=== PATIENT | male | born 1980 | race Caucasian/White ===

== ENCOUNTER 2017-07-19 23:08 | Inpatient (IN) ==
[2017-07-19] MEDS ORDERED: *HR* Dextrose 50 % in Water (Syg) 50 ML SYRINGE IVP PRN (23:34)
[2017-07-19] MEDS ORDERED: Insulin Human Regular 100 UNIT in 0.9 % Sodium Chloride 100 ML IVC SCH (23:45)
[2017-07-20 00:01] LABS: Basophils # 0.1 K/mcL (0.0-0.2); Basophils % 0.4 %; Eosinophils # 0.2 K/mcL (0.0-0.6); Eosinophils % 1.5 %; Hematocrit 44.8 % (37.5-50.1); Hemoglobin 15.3 g/dL (12.9-16.9); Immature Granulocytes % 0.6 % (0-4); Immature Platelets 2.7 % (1.1-6.1); Lymphocytes # 3.3 K/mcL (0.6-4.6); Lymphocytes % 22.9 %; Mean Corpuscular HGB Conc 34.2 g/dL (31.6-35.5); Mean Corpuscular Hemoglobin 25.8 pg (28.0-33.3); Mean Corpuscular Volume 75.7 fL (83.0-100.0); Mean Platelet Volume 9.8 fL (9.4-12.4); Monocytes # 0.9 K/mcL (0.0-1.3); Monocytes % 6.2 %; Neutrophils # 9.8 K/mcL (1.6-8.9); Platelet Count 336 K/mcL (140-400); Red Blood Count 5.92 M/mcL (4.19-5.50); Red Cell Distribution Width 15.8 % (11.5-14.5); Segmented Neutrophils % 68.4 %
[2017-07-20 00:10] LABS: VBG HCO3 21 mEq/L (21-27); VBG PCO2 40 mmHg (41-51); VBG PH 7.32 pH Units (7.32-7.42); VBG PO2 39 mmHg (25-50)
[2017-07-20 00:13] LABS: Beta-Hydroxybutyric Acid > 2.00 mmol/L (0.02-0.27)
[2017-07-20 00:24] LABS: Alanine Aminotransferase 30 Units/L (7-52); Albumin 4.6 g/dL (3.5-5.7); Albumin/Globulin Ratio 1.2 (1.1-2.2); Alkaline Phosphatase 117 Units/L (34-104); Aspartate Amino Transferase 18 Units/L (13-39); BUN/Creatinine Ratio 16 (6-26); Bilirubin,Total 0.4 mg/dL (0.3-1.0); Blood Urea Nitrogen 18 mg/dL (6-20); Calcium 10.2 mg/dL (8.6-10.3); Carbon Dioxide 21 mEq/L (23-29); Chloride 90 mEq/L (98-107); Globulin 3.8 g/dL (2.4-3.5); Glucose 672 mg/dL (70-105); Magnesium 2.2 mg/dL (1.6-2.6); Osmolality,Calculated 294 (280-300); Phosphorous 3.1 mg/dL (2.7-4.5); Potassium 4.6 mEq/L (3.5-5.1); Sodium 125 mEq/L (136-145); Total Protein 8.4 g/dL (6.4-8.9); eGFR For African Americans > 60 (> 60); eGFR For Non-African Americans > 60 (> 60)
[2017-07-20 00:38] LABS: Hemoglobin A1C 13.9 %
[2017-07-20 00:41] LABS: Amphetamine Screen,Urine Negative ng/mL (Cutoff=1000); Barbiturate Screen,Urine Negative ng/mL (Cutoff=200); Benzodiazepines Screen,Urine Negative ng/mL (Cutoff=200); Cannabinoid Screen,Urine Negative ng/mL (Cutoff = 50); Cocaine Screen,Urine Negative ng/mL (Cutoff= 300); Opiate Screen,Urine Negative ng/mL (Cutoff=300); Phencyclidine Screen,Urine Negative ng/mL (Cutoff=25)
[2017-07-20 00:44] LABS: Salicylate < 5.0 mg/dL (15.0-30.0)
[2017-07-20 00:45] LABS: Acetaminophen < 1.0 mcg/mL (10-30); Ethanol < 10 mg/dL (0-10)
[2017-07-20] MEDS: 0.9 % Sodium Chloride 1,000 ML IVC SCH ×2 (01:23→02:48)
[2017-07-20 01:24] LABS: Bilirubin,Urine Negative (Negative); Blood,Urine Negative (Negative); Clarity,Urine Clear (Clear); Color,Urine Yellow (Yellow); Glucose,Urine (UA) >=1000 mg/dL (Normal); Ketones,Urine 40 mg/dL (Negative); Leukocyte Esterase,Urine Negative (Negative); Nitrite,Urine Negative (Negative); Protein,Urine Negative (Neg-Trace); Specific Gravity,Urine > 1.030 (1.010-1.025); Urobilinogen,Urine Normal (Normal)
--- NOTE | 2017-07-20 01:35 | Emergency Department Note ---
Disposition Clinical Impression: Elevated glucose, Elevated blood ketone body level, Suicidal ideation Disposition: Admitted As Inpatient Condition: Fair Referrals: NONE,PCP [Primary Care Provider] - Forms: ED Satisfaction Letter General Adult HPI - General Chief complaint: ED Psychiatric Symptoms Stated complaint: suicidal, wants to quit using drugs Time Seen by Provider: 07/19/17 23:31 Source: patient, EMS Limitations: no limitations Nursing Notes Reviewed: Yes Vital Signs Reviewed: Yes - History of Present Illness HPI Narrative: Patient presents today with concern for suicidal ideation. Patient recently lost his brother secondary to overdose. He should is a heroine user. Patient uses heroin. Patient had thoughts of injecting enough heroin to commit suicide. [facility] The patient presents here with complaints of nausea vomiting and abdominal cramping. Patient is a diabetic with poor control. Patient will be evaluated for hyperglycemia with initial zrpyo-ic-rhbt glucose reading greater than 500. Patient also undergo psychiatric clearance labs. Pain Scale: 4 - Related Data Allergies Allergy/AdvReac Type Severity Reaction Status Date / Time tramadol AdvReac Seizure Verified 07/19/17 23:20 Review of Systems: CONSTITUTIONAL: No weight loss, fever, chills, weakness or fatigue. HEENT: Eyes: No visual changes. Ears, Nose, Throat: No hearing loss, difficulty talking or unable to swallow. SKIN: No rash or itching. CARDIOVASCULAR: No chest pain, chest pressure or chest discomfort. No palpitations or edema. RESPIRATORY: No shortness of breath, cough or sputum. GASTROINTESTINAL: Nausea vomiting and abdominal cramping GENITOURINARY: No burning on urination or hematuria. NEUROLOGICAL: No headache, dizziness, syncope, paralysis, ataxia, numbness or tingling in the extremities. No change in bowel or bladder control. MUSCULOSKELETAL: No muscle pain, back pain, joint pain or stiffness. Past Medical History - Past Medical History Medical history: Reports: diabetes, hepatitis Psychiatric history: Reports: anxiety, depression, PTSD - Social History Smoking Status: Never smoker Smokeless Tobacco Status: Yes Alcohol use: Reports: none Drug use: Reports: opiates Physical Exam General: Well appearing, nontoxic, no acute distress Head: Normocephalic Atraumatic Eyes: PERRL, EOMI ENT: Airway patent, no stridor Neck: supple, no meningismus Chest: Lungs clear to auscultation bilateral Cardiac: Regular rate and rhythm, no murmurs, rubs or gallops Abdomen: soft, nontender, nondistended; no guarding, rebound, or tenderness to percussion Musculoskeletal: Calves symmetric, nontender, no palpable cord Skin: No rash, normal skin tone Neuro: Alert and Oriented to person, place, and time; No focal deficit, CN 2-12 symmetric and intact - General Limitations: no limitations General appearance: alert, in no apparent distress Course - Reevaluation(s) Reevaluation #1: Patient with elevated glucose and positive serum ketones. Hyponatremic. Insulin drip started. Patient will be admitted to the hospitalist service. - Consultations Consultation #1: Discussed with hospitalist, Dr. Arriaga. Patient accepted for admission. Vital Signs Temperature 98 F 07/19/17 23:13 Pulse Rate 90 07/19/17 23:13 Respiratory Rate 16 07/19/17 23:13 Blood Pressure 144/88 07/19/17 23:13 O2 Sat by Pulse Oximetry 95 07/19/17 23:13 Temperature 98 F 07/19/17 23:13 Pulse Rate 95 07/20/17 01:49 Respiratory Rate 18 07/20/17 01:49 Blood Pressure 145/88 07/20/17 01:49 O2 Sat by Pulse Oximetry 95 07/20/17 01:49 Oxygen Delivery Oxygen Delivery Room Air Medical Decision Making - Lab Data Result diagrams: 07/19/17 23:54 07/19/17 23:54 Lab Results 07/19/17 07/19/17 07/19/17 Range/Units 23:15 23:15 23:54 WBC 14.3 H (4.3-11.1) K/mcL RBC 5.92 H (4.19-5.50) M/mcL Hgb 15.3 (12.9-16.9) g/dL Hct 44.8 (37.5-50.1) % MCV 75.7 L (83.0-100.0) fL MCH 25.8 L (28.0-33.3) pg MCHC 34.2 (31.6-35.5) g/dL RDW 15.8 H (11.5-14.5) % Plt Count 336 (140-400) K/mcL MPV 9.8 (9.4-12.4) fL Immature Gran % 0.6 (0-4) % Seg Neutrophils % 68.4 % Lymphocytes % 22.9 % Monocytes % 6.2 % Eosinophils % 1.5 % Basophils % 0.4 % Neutrophils # 9.8 H (1.6-8.9) K/mcL Lymphocytes # 3.3 (0.6-4.6) K/mcL Monocytes # 0.9 (0.0-1.3) K/mcL Eosinophils # 0.2 (0.0-0.6) K/mcL Basophils # 0.1 (0.0-0.2) K/mcL Immature Plt Fraction 2.7 (1.1-6.1) % VBG pH (7.32-7.42) pH Units VBG pCO2 (41-51) mmHg VBG pO2 (25-50) mmHg VBG HCO3 (21-27) mEq/L Sodium (136-145) mEq/L Potassium (3.5-5.1) mEq/L Chloride (98-107) mEq/L Carbon Dioxide (23-29) mEq/L BUN (6-20) mg/dL Creatinine (0.70-1.30) mg/dL Est GFR ( Amer) (> 60) Est GFR (Non-Af Amer) (> 60) BUN/Creatinine Ratio (6-26) Glucose (70-105) mg/dL Est Mean Plasma Glucose mg/dl Hemoglobin A1c ( - 5.6) % Calculated Osmolality (280-300) Lactic Acid (0.5-2.2) mmol/L Calcium (8.6-10.3) mg/dL Phosphorus (2.7-4.5) mg/dL Magnesium (1.6-2.6) mg/dL Total Bilirubin (0.3-1.0) mg/dL AST (13-39) Units/L ALT (7-52) Units/L Alkaline Phosphatase (34-104) Units/L Troponin I (< 0.04) ng/mL Serum Total Protein (6.4-8.9) g/dL Albumin (3.5-5.7) g/dL Globulin (2.4-3.5) g/dL Albumin/Globulin Ratio (1.1-2.2) Beta-Hydroxybutyric Acd (0.02-0.27) mmol/L Urine Color Yellow (Yellow) Urine Clarity Clear (Clear) Urine pH 6.0 (5.0-8.0) pH Units Ur Specific [place] > 1.030 H (1.010-1.025) Urine Protein Negative (Neg-Trace) mg/dL Urine Glucose (UA) >=1000 H (Normal) mg/dL Urine Ketones 40 H (Negative) mg/dL Urine Blood Negative (Negative) Urine Nitrite Negative (Negative) Urine Bilirubin Negative (Negative) Urine Urobilinogen Normal (Normal) mg/dL Ur Leukocyte Esterase Negative (Negative) Ur Culture Indicated? NO (NO) Salicylates (15.0-30.0) mg/dL Urine Opiates Screen Negative (Wawsah=895) ng/mL Acetaminophen (10-30) mcg/mL Ur Barbiturates Screen Negative (Kiqzlo=675) ng/mL Ur Phencyclidine Scrn Negative (Cutoff=25) ng/mL Ur Amphetamines Screen Negative (Cyklkj=5742) ng/mL U Benzodiazepines Scrn Negative (Jabkuc=842) ng/mL Urine Cocaine Screen Negative (Cutoff= 300) ng/mL U Marijuana (THC) Screen Negative (Cutoff = 50) ng/mL Ethyl Alcohol (0-10) mg/dL 07/19/17 07/19/17 07/19/17 Range/Units 23:54 23:54 23:54 WBC (4.3-11.1) K/mcL RBC (4.19-5.50) M/mcL Hgb (12.9-16.9) g/dL Hct (37.5-50.1) % MCV (83.0-100.0) fL MCH (28.0-33.3) pg MCHC (31.6-35.5) g/dL RDW (11.5-14.5) % Plt Count (140-400) K/mcL MPV (9.4-12.4) fL Immature Gran % (0-4) % Seg Neutrophils % % Lymphocytes % % Monocytes % % Eosinophils % % Basophils % % Neutrophils # (1.6-8.9) K/mcL Lymphocytes # (0.6-4.6) K/mcL Monocytes # (0.0-1.3) K/mcL Eosinophils # (0.0-0.6) K/mcL Basophils # (0.0-0.2) K/mcL Immature Plt Fraction (1.1-6.1) % VBG pH (7.32-7.42) pH Units VBG pCO2 (41-51) mmHg VBG pO2 (25-50) mmHg VBG HCO3 (21-27) mEq/L Sodium 125 L (136-145) mEq/L Potassium 4.6 (3.5-5.1) mEq/L Chloride 90 L (98-107) mEq/L Carbon Dioxide 21 L (23-29) mEq/L BUN 18 (6-20) mg/dL Creatinine 1.11 (0.70-1.30) mg/dL Est GFR ( Amer) > 60 (> 60) Est GFR (Non-Af Amer) > 60 (> 60) BUN/Creatinine Ratio 16 (6-26) Glucose 672 H* (70-105) mg/dL Est Mean Plasma Glucose 352 mg/dl Hemoglobin A1c 13.9 H ( - 5.6) % Calculated Osmolality 294 (280-300) Lactic Acid 1.0 (0.5-2.2) mmol/L Calcium 10.2 (8.6-10.3) mg/dL Phosphorus 3.1 (2.7-4.5) mg/dL Magnesium 2.2 (1.6-2.6) mg/dL Total Bilirubin 0.4 (0.3-1.0) mg/dL AST 18 (13-39) Units/L ALT 30 (7-52) Units/L Alkaline Phosphatase 117 H (34-104) Units/L Troponin I (< 0.04) ng/mL Serum Total Protein 8.4 (6.4-8.9) g/dL Albumin 4.6 (3.5-5.7) g/dL Globulin 3.8 H (2.4-3.5) g/dL Albumin/Globulin Ratio 1.2 (1.1-2.2) Beta-Hydroxybutyric Acd > 2.00 H (0.02-0.27) mmol/L Urine Color (Yellow) Urine Clarity (Clear) Urine pH (5.0-8.0) pH Units Ur Specific [place] (1.010-1.025) Urine Protein (Neg-Trace) mg/dL Urine Glucose (UA) (Normal) mg/dL Urine Ketones (Negative) mg/dL Urine Blood (Negative) Urine Nitrite (Negative) Urine Bilirubin (Negative) Urine Urobilinogen (Normal) mg/dL Ur Leukocyte Esterase (Negative) Ur Culture Indicated? (NO) Salicylates < 5.0 L (15.0-30.0) mg/dL Urine Opiates Screen (Tlccpz=708) ng/mL Acetaminophen (10-30) mcg/mL Ur Barbiturates Screen (Knkkyc=348) ng/mL Ur Phencyclidine Scrn (Cutoff=25) ng/mL Ur Amphetamines Screen (Kykfbr=7007) ng/mL U Benzodiazepines Scrn (Qphqti=403) ng/mL Urine Cocaine Screen (Cutoff= 300) ng/mL U Marijuana (THC) Screen (Cutoff = 50) ng/mL Ethyl Alcohol (0-10) mg/dL 07/19/17 07/19/17 07/20/17 Range/Units 23:54 23:54 00:08 WBC (4.3-11.1) K/mcL RBC (4.19-5.50) M/mcL Hgb (12.9-16.9) g/dL Hct (37.5-50.1) % MCV (83.0-100.0) fL MCH (28.0-33.3) pg MCHC (31.6-35.5) g/dL RDW (11.5-14.5) % Plt Count (140-400) K/mcL MPV (9.4-12.4) fL Immature Gran % (0-4) % Seg Neutrophils % % Lymphocytes % % Monocytes % % Eosinophils % % Basophils % % Neutrophils # (1.6-8.9) K/mcL Lymphocytes # (0.6-4.6) K/mcL Monocytes # (0.0-1.3) K/mcL Eosinophils # (0.0-0.6) K/mcL Basophils # (0.0-0.2) K/mcL Immature Plt Fraction (1.1-6.1) % VBG pH 7.32 (7.32-7.42) pH Units VBG pCO2 40 L (41-51) mmHg VBG pO2 39 (25-50) mmHg VBG HCO3 21 (21-27) mEq/L Sodium (136-145) mEq/L Potassium (3.5-5.1) mEq/L Chloride (98-107) mEq/L Carbon Dioxide (23-29) mEq/L BUN (6-20) mg/dL Creatinine (0.70-1.30) mg/dL Est GFR ( Amer) (> 60) Est GFR (Non-Af Amer) (> 60) BUN/Creatinine Ratio (6-26) Glucose (70-105) mg/dL Est Mean Plasma Glucose mg/dl Hemoglobin A1c ( - 5.6) % Calculated Osmolality (280-300) Lactic Acid (0.5-2.2) mmol/L Calcium (8.6-10.3) mg/dL Phosphorus (2.7-4.5) mg/dL Magnesium (1.6-2.6) mg/dL Total Bilirubin (0.3-1.0) mg/dL AST (13-39) Units/L ALT (7-52) Units/L Alkaline Phosphatase (34-104) Units/L Troponin I < 0.03 (< 0.04) ng/mL Serum Total Protein (6.4-8.9) g/dL Albumin (3.5-5.7) g/dL Globulin (2.4-3.5) g/dL Albumin/Globulin Ratio (1.1-2.2) Beta-Hydroxybutyric Acd (0.02-0.27) mmol/L Urine Color (Yellow) Urine Clarity (Clear) Urine pH (5.0-8.0) pH Units Ur Specific [place] (1.010-1.025) Urine Protein (Neg-Trace) mg/dL Urine Glucose (UA) (Normal) mg/dL Urine Ketones (Negative) mg/dL Urine Blood (Negative) Urine Nitrite (Negative) Urine Bilirubin (Negative) Urine Urobilinogen (Normal) mg/dL Ur Leukocyte Esterase (Negative) Ur Culture Indicated? (NO) Salicylates (15.0-30.0) mg/dL Urine Opiates Screen (Uvciqv=430) ng/mL Acetaminophen < 1.0 L (10-30) mcg/mL Ur Barbiturates Screen (Clplwo=862) ng/mL Ur Phencyclidine Scrn (Cutoff=25) ng/mL Ur Amphetamines Screen (Ddsbfa=7854) ng/mL U Benzodiazepines Scrn (Qpzpam=404) ng/mL Urine Cocaine Screen (Cutoff= 300) ng/mL U Marijuana (THC) Screen (Cutoff = 50) ng/mL Ethyl Alcohol < 10 (0-10) mg/dL Attestation Statement - Attestation Attestation: I examined this patient and my medical decision-making was reviewed with the Resident Physician. I agree with the documented findings, disposition and treatment plan as described except to the extent set forth below. Patient with SI and hyperglycemia. No evidence of DKA but given the exaggerated state of blood glucose will start insulin infusion and admit to the hospital.
--- NOTE | 2017-07-20 02:15 | Internal Med History&Physical ---
Date of Encounter: 07/20/17 Time of Encounter: 02:13 Assessment and Plan (1) Hyperglycemia Current visit: Yes Status: Acute medical non-compliance bicarb normal, doubt DKA Poorly controlled hyperglycemia Now on insulin gtt, will order levemir and ISS to start in the morning and titrate off gtt is able IVF consult perinatal educator, will need insulin regimen and teaching for home (2) Suicidal ideation Current visit: Yes Status: Acute sitter, consult psych eval recent of brother - acute psychological trauma (3) Heroin abuse Current visit: Yes Status: Acute intermittent but has been using last 4 days Internal Medicine - H&P: HPI Chief complaint: Suicidal ideation History of present illness: Mr. Guadarrama is a 36 year old male hx of untreated DM and recent heroin use who presents with suicidal ideation. He loss his brother to heroin overdose 4 days ago and had buried his brother yesterday. He feels overwhelmed with sadness. To cope with feelings, he has started using heroin the last 4 days. He told his gf that he thought he might commit suicide by overdosing on heroin himself. His gf accompanied him to the hospital to seek help. He last used heroin yesterday and is not sure whether he will withdraw In the ED, he was later found to have severely uncontrolled glucose. [facility] approx 3 years ago where he was prescribed metformin and insulin. He however has poor medical compliance leading to persistent hyperglycemia. Past Med Surg Social Fam HX - Past Medical History Medical history: diabetes, hepatitis Psychiatric history: anxiety, depression, PTSD - Social History Smoking Status: Never smoker Smokeless Tobacco Status: Yes Alcohol use: none Drug use: opiates Internal Medicine - H&P: Meds 3 Allergy/AdvReac Type Severity Reaction Status Date / Time tramadol AdvReac Seizure Verified 07/19/17 23:20 All Systems PM: A 10-system review of systems was performed and is negative for pertinent findings except as documented above in the HPI. Review of systems: ROS 14 point review of systems reviewed as best as possible given presentation. Pertinent positive or negative as per HPI or otherwise reviewed as negative - Constitutional Vitals: Temp Pulse Resp BP Pulse Ox 98 F 95 18 145/88 95 07/19/17 23:13 07/20/17 01:49 07/20/17 01:49 07/20/17 01:49 07/20/17 01:49 Exam: General - AAO x 3 Psych - Sad Eyes - RODRIGUEZ. Eye lids intact. No scleral icterus Neuro - No gross peripheral or central neuro deficits with intact CN 2-12 exam Heart - Sinus. RRR. S1 and S2 present. No added HS/murmurs appreciated. No elevated JVD appreciated. Lung - Adequate air entry b/l, No crackles/wheezes appreciated GI - Soft, non-tender. No hepatosplenomegaly/ascites. BS+ - No CVA/suprapubic tenderness or palpable bladder distension Internal Med - H&P Results - Labs CBC & Chem 7: 07/19/17 23:54 07/19/17 23:54 Labs: Short CBC 07/19/17 Range/Units 23:54 WBC 14.3 H (4.3-11.1) K/mcL Hgb 15.3 (12.9-16.9) g/dL Hct 44.8 (37.5-50.1) % Plt Count 336 (140-400) K/mcL Neutrophils # 9.8 H (1.6-8.9) K/mcL BMP 07/19/17 23:54 Sodium 125 L Potassium 4.6 Chloride 90 L Carbon Dioxide 21 L BUN 18 Creatinine 1.11 Glucose 672 H* Calcium 10.2 Cardiac Enzymes 07/19/17 Range/Units 23:54 Troponin I < 0.03 (< 0.04) ng/mL Liver Function 07/19/17 Range/Units 23:54 Total Bilirubin 0.4 (0.3-1.0) mg/dL AST 18 (13-39) Units/L ALT 30 (7-52) Units/L Alkaline Phosphatase 117 H (34-104) Units/L Albumin 4.6 (3.5-5.7) g/dL Urine 07/19/17 Range/Units 23:15 Urine Color Yellow (Yellow) Urine Clarity Clear (Clear) Urine pH 6.0 (5.0-8.0) pH Units Ur Specific [place] > 1.030 H (1.010-1.025) Urine Protein Negative (Neg-Trace) mg/dL Urine Glucose (UA) >=1000 H (Normal) mg/dL - ABG Interpretation ABG results: 07/20/17 00:08 VBG pH 7.32 VBG pCO2 40 L VBG pO2 39 VBG HCO3 21
[2017-07-20] MEDS ORDERED: Naloxone 0.4 MG/ML INJ IVP PRN (02:19)
[2017-07-20] MEDS ORDERED: D5% in Water 1,000 ML IVC PRN (02:23)
[2017-07-20] MEDS ORDERED: Dextrose Gel 15 GM/37.5 ML TUBE PO PRN ×2 (02:23)
[2017-07-20] MEDS ORDERED: *HR* Dextrose 50 % in Water (Syg) 50 ML SYRINGE IVP PRN ×2 (02:23→02:25)
[2017-07-20] MEDS ORDERED: Insulin Human Regular 100 UNIT in 0.9 % Sodium Chloride 100 ML IVC SCH (02:30)
[2017-07-20] MEDS ORDERED: 0.9 % Sodium Chloride 1,000 ML IVC SCH (02:30)
[2017-07-20] MEDS ORDERED: tiZANidine 4 MG TABLET PO PRN (02:39)
[2017-07-20] MEDS ORDERED: 0.9 % Sodium Chloride 1,000 ML ONE (02:42)
[2017-07-20 05:32] LABS: Basophils # 0.1 K/mcL (0.0-0.2); Basophils % 0.6 %; Eosinophils # 0.3 K/mcL (0.0-0.6); Hematocrit 37.9 % (37.5-50.1); Immature Granulocytes % 0.8 % (0-4); Lymphocytes # 3.8 K/mcL (0.6-4.6); Lymphocytes % 28.8 %; Mean Corpuscular HGB Conc 34.8 g/dL (31.6-35.5); Mean Corpuscular Volume 74.8 fL (83.0-100.0); Mean Platelet Volume 9.7 fL (9.4-12.4); Monocytes # 0.6 K/mcL (0.0-1.3); Monocytes % 4.4 %; Neutrophils # 8.3 K/mcL (1.6-8.9); Platelet Count 303 K/mcL (140-400); Red Blood Count 5.07 M/mcL (4.19-5.50); Red Cell Distribution Width 14.9 % (11.5-14.5); Segmented Neutrophils % 63.4 %
[2017-07-20 05:37] LABS: Hemoglobin 13.2 g/dL (12.9-16.9)
[2017-07-20 06:30] LABS: BUN/Creatinine Ratio 20 (6-26); Blood Urea Nitrogen 16 mg/dL (6-20); Calcium 9.3 mg/dL (8.6-10.3); Carbon Dioxide 23 mEq/L (23-29); Chloride 104 mEq/L (98-107); Glucose 301 mg/dL (70-105); Osmolality,Calculated 294 (280-300); Potassium 3.4 mEq/L (3.5-5.1); Sodium 136 mEq/L (136-145); eGFR For African Americans > 60 (> 60); eGFR For Non-African Americans > 60 (> 60)
[2017-07-20] MEDS ORDERED: Insulin LISPRO 300 UNITS/3 ML VIAL SQ SCH ×2 (07:30→21:00)
[2017-07-20 07:57] VITALS: BP 116/72
[2017-07-20] MEDS ORDERED: diazePAM 5 MG TABLET PO ONE (08:00)
[2017-07-20] MEDS ORDERED: Insulin DETEMIR 100 UNIT/ML X5UNITS SQ SCH (09:00)
--- NOTE | 2017-07-20 10:27 | Discharge Summary ---
Date of Encounter: 07/20/17 Time of Encounter: 10:25 - Discharge Diagnosis (1) Hyperglycemia Priority: Primary Status: Acute (2) Diabetes mellitus Priority: Secondary Status: Acute Qualifiers: Diabetes mellitus type: type 2 Diabetes mellitus complication status: with hyperglycemia Diabetes mellitus joint terminal attack controller insulin use: with joint terminal attack controller use Qualified Code(s): E11.65 - Type 2 diabetes mellitus with hyperglycemia; Z79.4 - care home (current) use of insulin; Z79.4 - care home (current) use of insulin ; Z79.4 - watermaster (current) use of insulin; Z79.4 - watermaster (current) use of insulin (3) Suicidal ideation Priority: Secondary Status: Resolved (4) Heroin abuse Priority: Secondary Status: Acute - Discharge Medications Prescriptions: Insulin Glargine,Hum.rec.anlog [Lantus Solostar] 20 unit SQ DAILY #1 insuln.pen Home Medications: Insulin Glargine,Hum.rec.anlog [Lantus Solostar] 20 unit SQ DAILY #1 insuln.pen 07/20/17 [Rx] Allergies/Adverse Reactions: 3 Allergy/AdvReac Type Severity Reaction Status Date / Time tramadol AdvReac Seizure Verified 07/20/17 09:21 Date of admission: 07/20/17 02:39 Primary care physician: PCP NONE Consults: 07/20/17 09:54 Consult to Psychiatry [CONS] Stat Consulting Provider: Massimo Muniz Reason for Consult: Suicidal ideation Time Notified: 09:55 Call Completed: Yes Discharging clinician: Jesus Manuel Guadalupe Anticipated date of discharge: 07/20/17 - Patient Status Disposition: Home, Self-Care Condition: Good Functional capacity at discharge: independent ambulation Overall status at discharge: patient is progressing back to baseline - Discharge Instructions Instructions: Diabetic Hyperglycemia (DC) Follow Up With: NONE,PCP [Primary Care Provider] - (in 1 week) Additional Instructions: F/u with PCP and psychiatry to help manage your depression. Return to ED if you develop suicidal thoughts. - Diet and Activity Activity: increase activity as tolerated Hospital course: Mr. Guadarrama is a 36 year old male patient with history of diabetes mellitus type 2, depression was hospitalized yesterday with complaints of suicidal ideation and hyperglycemia. He was not pink slipped then. This morning he denies any further suicidal ideation. His blood sugars have returned to normal. He reports that he has been increasingly depressed as he lost his brother 4 days back. He understands the resources available to him in case he develops suicidal thoughts or ideations. [facility]. He is clinically stable to be discharged home today. - Time Spent with Patient Total time spent providing and/or coordinating discharge services: Greater than 30 minutes (32 min) - Constitutional Vitals: Temp Pulse Resp BP Pulse Ox 98.8 F 84 13 116/72 94 07/20/17 07:56 07/20/17 07:56 07/20/17 07:56 07/20/17 07:56 07/20/17 07:56 General appearance: Present: cooperative, A&O X 3, answers questions appropriately - Respiratory Respiratory exam: Present: CTAB. Absent: accessory muscle use, rales, rhonchi, wheezes - Cardiovascular Cardiovascular exam: Present: RRR, +S1, +S2. Absent: diastolic murmur, gallop, rubs, systolic murmur - Extremities Exam Extremities exam: Present: warm, radial pulses palpable and symmetrical. Absent : calf tenderness, cyanotic, pedal edema - Psychiatric Psychiatric exam: Present: depressed, flat affect. Absent: suicidal ideation
== END 2017-07-20 10:32 | disposition home or self-care (01) | DRG 638 ==
LOC: EMEROO 23:08 → 2ANU 07-20 02:39 → SUATTDRO 07-20 02:39 → 2ANU 07-20 03:24
PROVIDERS: ADMIT Internal Medicine Hematology & Oncology; ATTEND Internal Medicine